=== PATIENT | male | born 1980 | race Caucasian/White ===

== ENCOUNTER 2019-11-12 11:12 | Emergency (ER) | payer MEDICAID ==
[~2019-11-12] VITALS: Ht 172.7 cm; Wt 100.0 kg
[2019-11-12 11:30] VITALS: BP 133/79
[2019-11-12] MEDS ORDERED: CEPHALEXIN MONOHYDRATE 500 MG CAPSULE PO ONE (11:45)
[2019-11-12] MEDS ORDERED: IBUPROFEN 400 MG TABLET PO ONE (11:45)
[2019-11-12] MEDS ORDERED: ACYCLOVIR 200 MG CAPSULE PO ONE (11:45)
== END 2019-11-12 12:00 | disposition home or self-care (01) ==
LOC: EMS 11:13
DX: R21 Rash and other nonspecific skin eruption (principal)
CPT/HCPCS: Z7502; Z7610